=== PATIENT | female | born 1955 | race Caucasian/White ===

== ENCOUNTER 2017-04-15 01:25 | Emergency (ER) | payer BC, OTHER ==
[2017-04-15] MEDS ORDERED: Ondansetron 4 MG/2 ML SDV IVPUSH ONE (02:01)
[2017-04-15] MEDS ORDERED: Sodium Chloride 0.9% 1,000 ML IV ONE (02:09)
--- NOTE | 2017-04-15 02:09 | EDM.PDOC ---
ED HPI GENERAL MEDICAL PROBLEM - General Chief Complaint: Gastrointestinal Problem Stated Complaint: nausea/vomiting Time Seen by Provider: 04/15/17 01:54 Source of Information: Reports: Patient, Family (mother) - History of Present Illness INITIAL COMMENTS - FREE TEXT/NARRATIVE: Patient is a 61 year old female who presents to the ER with complaints of abdominal pain and N/V/D. She reports that she hasn't felt well all day, but around 7 pm this evening she began vomiting and having diarrhea. She reports her abdominal pain is mid lower. She rates the pain a 5/10. Mother reports she has been eating and drinking ok up until about 7 pm. She reports that she has been lying on the bathroom floor since. She has vomited ~5 times since 7 pm. She reports she also fainted. She reports she typically has fainting spells when she is ill. Denies chest pain, shortness of breath, dysuria, urinary frequency, urinary urgency, Treatments [employer]: Reports: Other (see below) Other Treatments [employer]FT [employer]ER: NONE Abdominal Pain Score (Numeric/FACES): 5 - Related Data Allergies Allergy/AdvReac Type Severity Reaction Status Date / Time No Known Allergies Allergy Verified 04/15/17 01:29 Home Meds: Home Meds Nitrofurantoin Macrocrystal [Macrodantin] 100 mg PO BID 5 Days #10 capsule 04/15 [Rx] Ondansetron [Zofran] 4 mg PO Q6H PRN #15 tab 04/15/17 [Rx] Past Medical History - Past Health History Medical/Surgical History: Denies Medical/Surgical History Social & Family History - Tobacco Use Smoking Status *Q: Never Smoker ED ROS GENERAL - Review of Systems Review Of Systems: See Below Constitutional: Reports: Fever, Chills, Weakness, Fatigue. Denies: Diaphoresis , Decreased Appetite HEENT: Reports: No Symptoms Respiratory: Reports: No Symptoms. Denies: Shortness of Breath, Cough, Sputum, Hemoptysis Cardiovascular: Reports: No Symptoms. Denies: Chest Pain, Lightheadedness Endocrine: Reports: Fatigue GI/Abdominal: Reports: Abdominal Pain, Diarrhea, Nausea, Vomiting. Denies: Black Stool, Bloody Stool, Hematemesis, Hematochezia, Melena : Reports: No Symptoms. Denies: Dysuria, Flank Pain, Frequency, Urgency Musculoskeletal: Reports: No Symptoms Skin: Reports: No Symptoms Neurological: Reports: Weakness (generalized) ED EXAM, GI/ABD - Physical Exam Exam: See Below Exam Limited By: No Limitations General Appearance: Alert, WD/WN, Mild Distress Eyes: Bilateral: EOMI Respiratory/Chest: No Respiratory Distress, Lungs Clear, Normal Breath Sounds, No Accessory Muscle Use, Chest Non-Tender Cardiovascular: Normal Peripheral Pulses, Regular Rate, Rhythm, No Edema, No Gallop, No JVD, No Murmur, No Rub GI/Abdominal Exam: Normal Bowel Sounds, Soft, No Organomegaly, No Distention, No Mass, Pelvis Stable, Tender (to mid epigastric area). No: Distended, Guarding, Rigid, Rebound, Abnormal Bowel Sounds, Mass, Hepatomegaly, Splenomegaly (Female) Exam: Deferred Rectal (Female) Exam: Deferred Neurological: Alert, Oriented, CN II-XII Intact, Normal Cognition, No Motor/ Sensory Deficits Psychiatric: Tearful Course - Vital Signs Last Recorded V/S: Last Vital Signs Temp 100.2 F 04/15/17 02:35 Pulse 73 04/15/17 02:35 Resp 16 04/15/17 02:35 BP 108/54 L 04/15/17 02:35 Pulse Ox 96 04/15/17 02:35 - Orders/Labs/Meds Orders: Active Orders 24 hr Category Date Time Status CULTURE URINE [RM] Stat Lab 04/15/17 02:57 Ordered Labs: Laboratory Tests 04/15/17 04/15/17 04/15/17 Range/Units 01:34 01:34 01:34 WBC 11.2 H (5.0-10.0) 10^3/uL RBC 4.59 (4.00-5.50) 10^6/uL Hgb 14.3 (12.0-16.0) g/dL Hct 43.0 (37.0-47.0) % MCV 93.7 (82.0-94.0) fL MCH 31.2 (27.0-32.0) pg MCHC 33.3 (33.0-38.0) g/dL RDW Coeff of Cora 11.8 (11.0-15.0) % Plt Count 210 (150-400) 10^3/uL Neut % (Auto) 95.0 H (35-85) % Lymph % (Auto) 1.6 L (10-55) % [place] % (Auto) 3.0 (0-16) % Eos % (Auto) 0.4 (0-5) % Baso % (Auto) 0 (0-3) % Neut # (Auto) 10.60 H (1.80-7.00) 10^3/uL Lymph # (Auto) 0.18 L (1.00-4.80) 10^3/uL [place] # (Auto) 0.33 (0.00-0.80) 10^3/uL Eos # (Auto) 0.04 (0.00-0.45) 10^3/uL Baso # (Auto) 0.00 10^3/uL Sodium 143 (136-145) mEq/L Potassium 4.4 D (3.5-5.0) mEq/L Chloride 107 H (98-106) mEq/L Carbon Dioxide 27 (21-32) mmol/L BUN 19 H D (7-18) mg/dL Creatinine 1.0 (0.6-1.0) mg/dL Est Cr Clr Drug Dosing 50.11 mL/min Estimated GFR (MDRD) 57 L (>=60) mL/min Glucose 131 H D (75-99) mg/dL Calcium 9.2 (8.4-10.1) mg/dL Total Bilirubin 0.6 (0.0-1.0) mg/dL AST 20 (15-37) U/L ALT 26 (12-78) U/L Alkaline Phosphatase 82 (46-116) U/L C-Reactive Protein 0.5 (0.2-0.8) mg/dL Total Protein 7.3 (6.4-8.2) g/dL Albumin 3.9 (3.4-5.0) g/dL Amylase 28 (25-115) U/L Urine Color Yellow (YELLOW) Urine Appearance Clear (CLEAR) Urine pH 6.0 (4.5-8.0) Ur Specific [place] 1.020 (1.003-1.020) Urine Protein 30 H (NEGATIVE) mg/dL Urine Glucose (UA) 100 H (NEGATIVE) mg/dL Urine Ketones 15 H (NEGATIVE) mg/dL Urine Occult Blood Trace-intact H (NEGATIVE) Urine Nitrite Negative (NEGATIVE) Urine Bilirubin Small H (NEGATIVE) Urine Urobilinogen 0.2 (0.2-1.0) EU/dL Ur Leukocyte Esterase Small H (NEGATIVE) Meds: Medications Discontinued Medications Generic Name Dose Route Start Last Admin Trade Name Freq PRN Reason Stop Dose Admin Al Hydroxide/Mg Hydroxide 30 0 ml 04/15/17 02:13 04/15/17 05:31 ml/ Lidocaine HCl 15 ml PO 04/15/17 02:14 Not Given ONETIME ONE Fentanyl 50 mcg 04/15/17 02:11 04/15/17 02:26 Sublimaze IVPUSH 04/15/17 02:12 50 mcg ONETIME ONE Administration Fentanyl 50 mcg 04/15/17 02:19 Sublimaze IVPUSH Q2H PRN Pain Promethazine HCl 25 mg/ Sodium 51 mls @ 100 mls/hr 04/15/17 02:18 Chloride IV Q6H PRN Nausea Sodium Chloride 1,000 mls @ 150 mls/hr 04/15/17 02:30 04/15/17 02:45 Normal Saline IV 150 mls/hr ASDIRECTED LUIS Administration Ondansetron HCl 4 mg 04/15/17 02:01 04/15/17 02:06 Zofran IVPUSH 04/15/17 02:02 4 mg NOW ONE Administration - Re-Assessments/Exams Free Text/Narrative Re-Assessment/Exam: 04/15/17 02:20 Discussed labs with patient and mother. Does look like she has a UTI with small leukocyte esterase. WBC 11.4. BUN 19. Urine spec grav 1.020. Will put in extended ER for IVF and nausea medications. Can try GI cocktail if nausea improves. Will see on rounds in am to assess for improvement. Pain and nausea medications ordered. 04/15/17 07:40 Nursing staff reports patient slept through entire night. Did not have any emesis or diarrhea. Patient reports she is feeling "much better." Denies any nausea, vomiting, diarrhea, or abdominal pain. Will finish IVF and discharge home. Departure - Departure Time of Disposition: 07:41 Disposition: Home, Self-Care 01 Condition: Good Clinical Impression: UTI, Urinary tract infectious disease, Gastroenteritis, Vomiting, Diarrhea, Abdominal pain - Discharge Information Prescriptions: Nitrofurantoin Macrocrystal [Macrodantin] 100 mg PO BID 5 Days #10 capsule Ondansetron [Zofran] 4 mg PO Q6H PRN #15 tab PRN Reason: Nausea Instructions: Viral Gastroenteritis, Adult, [id number], Nausea and Vomiting, Adult, [id number], Urinary Tract Infection, Adult, [id number], Dehydration, Adult, [id number], Abdominal Pain, Adult, [id number] Referrals: Brenden Vera MD [Primary Care Provider] - Forms: ED Department Discharge Additional Instructions: Rest as much as possible. Push fluids to maintain hydration. Tylenol or ibuprofen as needed for fever or pain. Zofran as needed for nausea. Antibiotics as prescribed for UTI. Follow up with PCP as needed. - My Orders Last 24 Hours: My Active Orders 04/15/17 02:57 CULTURE URINE [RM] Stat - Assessment/Plan Last 24 Hours: My Active Orders 04/15/17 02:57 CULTURE URINE [RM] Stat
[2017-04-15] MEDS ORDERED: fentaNYL 100 MCG/2 ML SDV IVPUSH ONE (02:11)
[2017-04-15] MEDS ORDERED: Alum Hydrox/Mag Hydrox/Simeth 30 ML, Lidocaine 2% 15 ML PO ONE ×2 (02:13)
[2017-04-15] MEDS ORDERED: Promethazine 25 MG in Sodium Chloride 0.9% 50 ML IV PRN (02:18)
[2017-04-15] MEDS ORDERED: fentaNYL 100 MCG/2 ML SDV IVPUSH PRN (02:19)
[2017-04-15] MEDS ORDERED: Sodium Chloride 0.9% 1,000 ML IV SCH (02:30)
[2017-04-15 03:07] VITALS: BP 108/54
== END 2017-04-15 09:57 | disposition home or self-care (01) ==
LOC: CC.ED 01:25
DX: K52.9 Noninfective gastroenteritis and colitis, unspecified (principal); N39.0 Urinary tract infection, site not specified
CPT/HCPCS: 36415; 80053; 81003; 82150; 85025; 86140; 87086; 96361; 96374; 96375; 99284; J2405; J3010; J7030